=== PATIENT | male | born 1945 | race Hispanic/Latino ===

== ENCOUNTER 2023-08-02 10:56 | Emergency (ER) | payer OTHER ==
[~2023-08-02] VITALS: Ht 190.5 cm; Wt 70.3 kg
[2023-08-02 11:03] VITALS: BP 146/71; PULSE 76; RESP 16; O2SAT 97
== END 2023-08-02 13:01 | disposition home or self-care (01) ==
LOC: EDH 10:56
DX: R55 Syncope and collapse (principal); E11.9 Type 2 diabetes mellitus without complications
CPT/HCPCS: 99281